=== PATIENT | female | born 1980 | race Caucasian/White ===

== ENCOUNTER → 2024-11-23 | Outpatient (CLI) | payer MEDICAID, SELFPAY ==
--- NOTE | 2024-11-23 11:00 | XR_ITS ---
Examination: CT abdomen and pelvis without contrast. Coronal 3-D reconstructions. Sagittal 2-D reconstructions. Date and time of exam:November 23, 2024 1207 hours Comparison March 27, 2024 INDICATIONS: Bilateral flank pain beginning one month ago, history large right staghorn calculus right ureteral stent on CT stone study March 27, 2024, bilateral flank pain beginning one month ago CTDI: vol (mGy): 16.4 DLP: (mGycm): 967 Technique: Axial images of the abdomen have been obtained, 3 mm slice thickness Intravenous contrast material has not been administered. Low dose protocols were performed. One or more of the following dose reduction techniques were used; automated exposure control, adjustment of the mA and/or KV according to patient size, use of iterative reconstruction technique. Findings: Liver is mildly irregular in contour No gallstones Spleen not enlarged No pancreatic mass Extensive staghorn right renal calculi, the largest in the lower pole 16 mm Mild right hydronephrosis Right ureteral stent satisfactory position Small left parapelvic cysts 6 mm medial left renal calculus Aorta normal size No CT findings of appendicitis or bowel obstruction Atrophic uterus Urinary bladder wall thickening up to 6 mm, tiny calculi in the dependent portion of the bladder image 213 Moderate osteopenia IMPRESSION: Primary hepatocellular disease Extensive staghorn right renal calculi Right ureteral stent satisfactory position, mild right hydronephrosis Tiny bladder calculi Cystitis pattern
== END | disposition home or self-care (01) ==
PROVIDERS: PCP Nurse Practitioner Family
DX: N20.0 Calculus of kidney (principal); K76.9 Liver disease, unspecified; N13.30 Unspecified hydronephrosis; N21.0 Calculus in bladder
CPT/HCPCS: 74176

== ENCOUNTER 2025-06-27 09:50 | Emergency (ER) | payer MEDICAID, SELFPAY ==
[2025-06-27 10:06] VITALS: BP 144/93; PULSE 91; RESP 18; TEMP 37.2; O2SAT 96
--- NOTE | 2025-06-27 10:15 | EDRME_ITS ---
Rapid Medical Screening Exam [facility] Arrival date/time: 06/27/25 09:50 45-year-old female with a history of cerebral palsy presents to the emergency room with a chief complaint of a dislodged G-tube yesterday. Patient's caregiver states that she tried to replace it but was unable to. She then started a Soto catheter and does not know if it is in her stomach. Patient's caregiver states that the patient has been having lower abdominal pain. I have greeted and performed a focused initial assessment of this patient. A comprehensive ED assessment and evaluation of the patient, analysis of all test results, and completion of the medical decision making process will be conducted by additional ED providers. Chief Complaint: General Adult/Misc Complain Time Seen by Provider: 06/27/25 09:59 Vital signs: Vital Signs Temperature 98.9 F 06/27/25 10:06 Pulse Rate 91 06/27/25 10:06 Respiratory Rate 18 06/27/25 10:06 Blood Pressure 144/93 H 06/27/25 10:06 Pulse Oximetry (%) 96 06/27/25 10:06 Oxygen Delivery Method Room Air 06/27/25 10:06 Vital signs reviewed by provider: Yes
[2025-06-27 10:53] LABS: Basophils # (Auto) 0.0 Thou/mm3 (0.0-0.2); Basophils % (Auto) 0 % (0-2.5); Eosinophils # (Auto) 0.1 Thou/mm3 (0.0-0.5); Eosinophils % (Auto) 1 % (0-10); Hematocrit 44.1 % (36.0-46.0); Hemoglobin 14.2 g/dL (12.0-16.0); Immature Granulocytes Auto 0.03 Thou/mm3 (0.00-0.00); Lymphocytes # (Auto) 1.8 Thou/mm3 (1.0-4.8); Lymphocytes % (Auto) 19 % (10-50); Mean Corpuscular HGB Conc 32.2 g/dl (31.0-37.0); Mean Corpuscular Hemoglobin 26.2 pg (25.0-35.0); Mean Corpuscular Volume 81 fL (80-100); Monocytes # (Auto) 0.4 Thou/mm3 (0.0-0.8); Monocytes % (Auto) 4 % (0-12); Neutrophils # (Auto) 7.2 Thou/mm3 (1.8-7.7); Neutrophils % (Auto) 75 % (37-80); Nucleated Red Blood Cell # 0.00 Thou/mm3 (0.00-0.00); Nucleated Red Blood Cell % 0 /100 WBC (0); Platelet Count 296 Thou/mm3 (140-440); RDW Standard Deviation 46.3 fL (36.4-46.3); Red Blood Count 5.42 Miln/mm3 (4.00-5.20); White Blood Count 9.6 Thou/mm3 (3.6-11.0)
[2025-06-27 11:13] LABS: Alanine Aminotransferase 36 U/L (10-49); Albumin, Serum 4.9 gm/dL (3.5-5.0); Albumin/Globulin Ratio 1.5 (1.2-2.2); Alkaline Phosphatase 156 U/L (46-116); Amylase 71 U/L (30-118); Anion Gap 12 (7-16); Aspartate Amino Transferase 20 U/L (0-34); BUN/Creatinine Ratio 15 Ratio (12-20); Bilirubin,Total 0.8 mg/dL (0.3-1.2); Blood Urea Nitrogen 9 mg/dL (9-23); Calcium 9.6 mg/dL (8.3-10.6); Calcium (Corrected) 9.6 mg/dL (8.5-10.1); Carbon Dioxide 24.7 mMol/L (20.0-31.0); Chloride 106 mMol/L (98-107); Creatinine (Component) 0.6 mg/dL (0.6-1.3); Globulin 3.2 gm/dL (2.3-3.5); Glucose 114 mg/dL (74-106); Osmolality,Calculated 284 (275-295); Potassium 4.3 mMol/L (3.4-5.1); Sodium 143 mMol/L (136-145); Total Protein 8.1 gm/dL (5.7-8.2); eGFR > 60 See Note
--- NOTE | 2025-06-27 11:57 | XR_ITS ---
Examination: Abdomen AP single view Technique: AP portable supine abdomen, single view Exam date and time: #16 2024 1244 hours INDICATIONS: Known unknown position gastrostomy tube FINDINGS: Contrast opacified gastrostomy tube stomach and duodenum IMPRESSION: Gastrostomy tube in the stomach satisfactory position
--- NOTE | 2025-06-27 11:57 | EDNOTE_ITS ---
<Statement entered by Rach York MD - 06/27/25 15:08> As co-signing physician, I was present and available for consult prn. I concur with the plan and care as documented by the midlevel provider. ED General RME/HPI General Chief complaint: General Adult/Misc Complain Stated complaint: Feeding tube came out last night Time Seen by Provider: 06/27/25 09:59 Arrival date/time: 06/27/25 09:50 CC: Dislodged G-tube, urinary tract infection HPI this patient is nonverbal nonambulatory well cared for by her mother who comes in stating that she is complaining of dysuria, and is fairly sure that she has a urinary tract infection in addition patient mother has been manipulating an old catheter through the G-tube stoma which is now no longer functional and requires a new G- tube placement. Mother reports a fever at home. Patient is awake and responding to most questions with nods RME / HPI RME / HPI narrative: 06/27/25 09:50 45-year-old female with a history of cerebral palsy presents to the emergency ro om with a chief complaint of a dislodged G-tube yesterday. Patient's caregiver states that she tried to replace it but was unable to. She then started a Soto catheter and does not know if it is in her stomach. Patient's caregiver states that the patient has been having lower abdominal pain. I have greeted and performed a focused initial assessment of this patient. A comprehensive ED assessment and evaluation of the patient, analysis of all test results, and completion of the medical decision making process will be conducted by additional ED providers. Related Data Home Medications ?Medication ?Instructions ?Recorded ?Confirmed lactulose 20 gram/30 mL oral 30 ml G-tube HS #0 grams 01/14/17 05/01/24 solution montelukast 10 mg tablet 10 mg feeding tube HS #0 tab s 01/14/17 05/01/24 (Singulair) tizanidine 4 mg tablet (Zanaflex) 4 mg feeding tube HS #0 tabs 01/14/17 05/01/24 sertraline 50 mg tablet (Zoloft) 50 mg feeding tube QD AY Depression 08/04/18 05/01/24 estradiol 0.5 mg tablet 0.5 mg feeding tube QDAY 07/3105/01/24 acetaminophen 300 mg-codeine 30 mg 1 tab feeding tube BID PRN Pain 07/19/20 05/01/24 tablet omeprazole 20 mg tablet,delayed 20 mg PO QDAY 08/14/20 05/01/24 release amlodipine 5 mg tablet 5 mg feeding tube QDAY 10/3105/01/24 atorvastatin 40 mg tablet 40 mg feeding tube QDAY 02/1005/01/24 tamsulosin 0.4 mg capsule 0.4 mg PO QDAY 03/05/2104/12 metoprolol succinate 25 mg 25 mg PO QDAY 05/17/2104/12 tablet,extended release 24 hr albuterol 90 mcg-budesonide 80 See Rx Instructions .Ro danita .COMPLEX 05/01/24 05/01/24 mcg/actuation HFA aerosol inhaler (Airsupra) Previous Rx's ?Medication ?Instructions ?Recorded prednisone 10 mg tablet See Taper PO QDAY #45 tabs 0 05/03/24 cefpodoxime 200 mg tablet 200 mg PO BID #14 tabs 06/21 sulfamethoxazole 800 1 tab PO BID 7 days #14 tabs 06/27/25 mg-trimethoprim 160 mg tablet (Bactrim DS) Allergies Allergy/AdvReac Type Severity Reaction Status Date / Time linezolid Allergy Severe Vomiting Verified 06/27/25 09:54 morphine Allergy Severe HIVES Verified 06/27/25 09:54 nitrofurantoin Allergy Severe RASH,TONGUE Verified 06/27/25 09:54 SWELLS,VOMITS tramadol Allergy Severe HIVES Verified 06/27/25 09:54 Review of Systems Review of Systems ROS Unobtainable: unobtainable due to mental status Past Medical History Past Medical History NEUROLOGIC: Positive Neurological Disorders and Cerebral Palsy; Negative Dementia, Seizures, Epilepsy, Guillain-[place] Syndrome or Traumatic Brain Injury CARDIAC: Positive Cardiac Disorders, Hypercholesterolemia and Hypertension; Negative Congestive Heart Failure, Edema or Cellulitis RESPIRATORY: Positive Asthma and Pneumonia; Negative Chronic Obstructive Pulmonary Disease (COPD), Tuberculosis or Sleep Apnea GASTROINTESTINAL: Positive Gastrointestinal Disorders, Gastroesophageal Reflux Disease and Obesity; Negative Hepatitis GENITOURINARY: Positive Genitourinary Disorders, Renal Disease and Kidney Stones REPRODUCTIVE: Positive Endometriosis; Negative Breast Cancer or Previous Pregnancies MUSCULOSKELETAL: Positive Musculoskeletal Disorders, Arthritis and Scoliosis; Negative Muscular Dystrophy ENT: Negative Glaucoma ENDOCRINE: Positive Endocrine Disorders and Parathyroid Disease; Negative Diabetes Mellitus Type 1, Diabetes Mellitus Type 2 or Hypothyroidism HEMATOLOGIC: Negative Blood Disorders, Anemia, Sickle Cell Disease or Clotting Problems PSYCHO/SOCIAL: Positive Depression and Anxiety OTHER HISTORY: Positive Hospitalization, Anesthesia Reactions and Chicken Pox; Negative Autoimmune Disease, Down Syndrome, Developmental Delay, Shingles, Falls, Blood Transfusions, Blood Transfusion Reaction, Chemotherapy, Radiation Therapy, MRSA, VRSA, Measles, Mumps, Clostridium Difficile, Cancer or Breast Cancer Family History FAMILY HISTORY: Positive Family Respiratory Disorders, Family Cardiac Disorders and Family Surgery; Negative Family Psychiatric Problems, Family Gastrointestinal Problems, Family Cancer or Family Anesthesia Reaction Surgical History SURGICAL: Positive Abdominal Surgery and Hysterectomy; Negative Cardiac Surgery, Pacemaker, Endocrine Surgery, Ear Surgery, Gastrostomy, Joint Replacement or Neurologic Surgery Social History SMOKING STATUS: Never smoker SECOND HAND EXPOSURE: No SUBSTANCE USE: does not use ED Exam Narrative Physical exam: [General: Appears not in any acute distress acute distress note: Patient is nonverbal Head normocephalic HEENT: Eyes pupils are PERRLA EOMs are intact mouth tooth loose, pink moist membranes uvula is midline swallow symmetrical within acceptable limits Neck is supple nontender no JVD Chest equal chest rise nontender to palpation Respiratory: Clear to auscultation no wheezes crackles or rubs CV: Rate rhythm is regular no murmurs rubs or clicks Abdomen is distended secondary to body habitus soft nontender no masses positive bowel sounds all 4 quadrants. A single stoma center abdomen surrounding area is nonerythematous nonedematous no exudate or bleeding. Back: No CVA tenderness no spinous process tenderness from cervical spine thoracic and lumbar spine Skin: Intact no petechiae rash induration ulceration or crepitus Extremities: Contractures and deconditioning of all 4 extremities cap refills less than 2 seconds. Neuro: Awake alert (baseline) Course Quality Measures none Orders Category Date Time Status In and Out Catheter X1 Care 06/27/25 11:42 Completed XR abdomen 1V Stat Exams 06/27/25 11:57 Completed Amylase Stat Lab 06/27/25 10:48 Completed CBC Stat Lab 06/27/25 10:48 Completed CMP [Comprehensive Metabolic Panel] Stat Lab 06/27/25 10:48 Completed HCG Qualitative,Urine Stat Lab 06/27/25 12:20 Completed UA [Urinalysis] Stat Lab 06/27/25 12:20 Completed Urine Culture Stat Lab 06/27/25 12:20 Received Ketorolac Inj [Toradol Inj] Med 06/27/25 12:11 Discontinued 30 mg IM X1 ONE cefTRIAXone [Rocephin] 1,000 mg Med 06/27/25 13:51 Ordered Lidocaine 1% 20 ml [Xylocaine 1% 20 ML] 2.1 ml IM X1 Vital Signs Vital signs: Vital Signs Temperature 98.9 F 06/27/25 10:06 Pulse Rate 91 06/27/25 10:06 Respiratory Rate 18 06/27/25 10:06 Blood Pressure 144/93 H 06/27/25 10:06 Pulse Oximetry (%) 96 06/27/25 10:06 Oxygen Delivery Method Room Air 06/27/25 10:06 PROCEDURES: Procedure Comment Old feeding tube, which turns out to be a straight cath catheter with no b alloon, was removed without complication. 14 Urdu Soto catheter was advanced without complication balloon was inflated, gastric count contents was noted in the tube itself. Patient tolerated the procedure well dressing was applied. Discharge Plan Plan Patient Disposition: HOME (Self Care) Patient condition on transfer: Stable Prescriptions/Referrals Prescriptions/Med Rec: New sulfamethoxazole-trimethoprim [Bactrim DS] 800-160 mg tablet 1 tab PO BID 7 Days Qty: 14 0RF No Action montelukast [Singulair] 10 MG tablet 10 mg feeding tube HS Qty: 0 lactulose 20 GM/30 ML syrup 30 ml GT HS Qty: 0 tizanidine [Zanaflex] 4 MG tablet 4 mg feeding tube HS Qty: 0 acetaminophen-codeine 300-30 mg tablet 1 tab feeding tube BID PRN (Reason: Pain) Patient Comments: TAKE 1 TABLET BY MOUTH TWICE A DAY omeprazole 20 mg tablet,delayed release (DR/EC) 20 mg PO QDAY sertraline [Zoloft] 50 mg Tablet 50 mg feeding tube QDAY estradiol 0.5 mg tablet 0.5 mg feeding tube QDAY Patient Comments: TAKE 1 TABLET BY MOUTH EVERY DAY amlodipine 5 mg Tablet 5 mg feeding tube QDAY atorvastatin 40 mg Tablet 40 mg feeding tube QDAY tamsulosin 0.4 mg Capsule 0.4 mg PO QDAY metoprolol succinate 25 mg tablet extended release 24 hr 25 mg PO QDAY Patient Comments: TAKE 1 TABLET BY MOUTH EVERY DAY Airsupra 90-80 mcg/actuation HFA aerosol inhaler See Rx Instructions .ROUTE .COMPLEX Rx Instructions: 2 PUFF TID PRN prednisone 10 mg tablet See Taper PO QDAY Qty: 45 0RF Taper: Prednisone Taper 60 mg DAILY for 5 Days and 0 Hour 50 mg DAILY for 1 Day and 0 Hour 40 mg DAILY for 1 Day and 0 Hour 30 mg DAILY for 1 Day 20 mg DAILY for 1 Day 10 mg DAILY for 1 Day Rx Instructions: TAPER: 60 mg daily for 5 Days; 50 mg daily for 1 Day; 40 mg daily for 1 Day; 30 mg daily for 1 Day; 20 mg daily for 1 Day; 10 mg daily for 1 Day cefpodoxime 200 mg tablet 200 mg PO BID Qty: 14 0RF Rx Instructions: must administer with a meal/food Referrals: No Primary/Family,Physician [Primary Care Provider] - In 1 week Problem List Clinical Impression: UTI (urinary tract infection), Gastrostomy tube dysfunction Patient/Caregiver Discharge Instructions Education Materials: ED CYSTITIS Female Adult Additional Instructions: Take the medication as prescribed if there is worsening of symptoms return the emergency room for reevaluation. Print Language: Romanian Stand Alone Forms: [employer] Info., Work/School Release, Patient Portal Info Letter PA/ISABEL Supervising Physician PA/ISABEL Supervising Physician: Marck Dee ENP [facility] Clinical Information Provided by patient and parent Medical Records Reviewed [facility] Meds/Rx Considered, not Ordered None Labs/Rad/Tests considered, not Ordered None Chronic Illness/Social Conditions Add or document further as needed: Cerebral palsy nonverbal nonambulatory EKG EKG not done Lab Interpretation Labs: interpreted by me Lab(s) interpretation(s): CBC shows no leukocytosis anemia thrombocytopenia CMP shows no significant electrolyte imbalances renal impairment transaminitis or T. bili elevation Urine is positive for leukocyte esterase 23 WBCs 3+ bacteria. Imaging Imaging interpretation: interpreted by me Provider imaging interpretation(s): X-ray with Gastrografin as interpreted by me shows that the G-tube is in s atisfactory position. Medication Administration(s) Medication Administration History Ceftriaxone Sodium 1,000 mg/ (Lidocaine HCl 2.1 ml) 0 mg IM X1 ONE Stop: 06/27/25 13:52 Discontinued Medications Ketorolac Tromethamine (Ketorolac Inj 60 Mg/2 Ml Vial) 30 mg IM X1 ONE Stop: 06/27/25 12:12 Last Admin: 06/27/25 12:31 Dose: 30 mg Documented By: KELLI Diagnosis Differential diagnosis: UTI pyelonephritis Dispositon Disposition: Discharge Home
[2025-06-27] MEDS: KETOROLAC INJ 60 MG/2 ML VIAL 30 MG IM (12:31)
[2025-06-27 12:38] VITALS: BMI 29.7
[2025-06-27 12:50] LABS: Collection Type, Urine Clean Catch
[2025-06-27 13:00] VITALS: TEMP 37.6
[2025-06-27 13:04] LABS: Bacteria,Urine 3+; Bilirubin,Urine Negative (Negative); Blood,Urine Negative (Negative); Clarity,Urine Clear (Clear/Hazy); Color,Urine Lt-Yellow (Lt Yel-Yel); Glucose, Urine Negative (Negative); Ketones,Urine Negative (Negative); Leukocyte Esterase,Urine Positive (Negative); Nitrite,Urine Positive (Negative); PH,Urine 6.5 (5.0-7.0); Protein,Urine Trace (Neg - Trace); RBC,Urine 4 /hpf (0-3); Specific Gravity,Urine 1.012 (1.001-1.035); Squamous Epithelial Cell,Urine < 1 /hpf (0-5); Urobilinogen,Urine Negative mg/dL (0.0-1.0); WBC,Urine 23 /hpf (0-5)
[2025-06-27 13:09] VITALS: PULSE 69; RESP 17; O2SAT 95
[2025-06-27 13:14] LABS: HCG Qualitative,Urine Negative
[2025-06-27] MEDS: cefTRIAXone 1,000 MG, LIDOCAINE 1% 20 ML 2.1 ML IM (14:35)
[2025-06-27 14:44] VITALS: BP 149/107; PULSE 92; RESP 16; O2SAT 98
== END 2025-06-27 14:58 | disposition home or self-care (01) ==
PROVIDERS: Nurse Practitioner Family; Emergency Provider Emergency Medicine
DX: N39.0 Urinary tract infection, site not specified (principal); K94.23 Gastrostomy malfunction
CPT/HCPCS: 51701; 36415; 74018; 80053; 81001; 81025; 82150; 85025; 87077; 87086; 87186; 96372; 99284; J0696; J1885; J3490

== ENCOUNTER 2025-07-12 15:10 | Emergency (ER) | payer MEDICAID, SELFPAY ==
[2025-07-12 15:48] VITALS: BP 136/88; PULSE 79; RESP 20; TEMP 37.1; O2SAT 95; BMI 29.7
--- NOTE | 2025-07-12 16:12 | XR_ITS ---
Examination: Abdomen AP single view Technique: AP portable supine abdomen, single view Exam date and time: July 12, 2025, 1640 hrs. Indications: Unknown position gastrostomy tube Findings: Gastrostomy tube satisfactory position in the stomach, with opacification of the stomach duodenal bulb and small bowel without abnormal extravasation Impression: Gastrostomy tube satisfactory position
--- NOTE | 2025-07-12 16:13 | EDNOTE_ITS ---
ED General RME/HPI General Chief complaint: General Adult/Misc Complain Stated complaint: FEEDING TUBE CAME OUT Time Seen by Provider: 07/12/25 15:57 Arrival date/time: 07/12/25 15:10 RME / HPI RME / HPI narrative: 45-year-old female patient with significant history of chronic debility, nonverbal, came in for evaluation regarding gastric tube came out. Patient has been having gastric tube for the last 30 years, and earlier today patient gastric tube came out out of nowhere. Family tried to put temporary tubing using friends 14 catheter. No bleeding noted no vomiting noted no other complaints noted. Related Data Home Medications ?Medication ?Instructions ?Recorded ?Confirmed lactulose 20 gram/30 mL oral 30 ml G-tube HS #0 grams 01/14/17 05/01/24 solution montelukast 10 mg tablet 10 mg feeding tube HS #0 tab s 01/14/17 05/01/24 (Singulair) tizanidine 4 mg tablet (Zanaflex) 4 mg feeding tube HS #0 tabs 01/14/17 05/01/24 sertraline 50 mg tablet (Zoloft) 50 mg feeding tube QD AY Depression 08/04/18 05/01/24 estradiol 0.5 mg tablet 0.5 mg feeding tube QDAY 07/3105/01/24 acetaminophen 300 mg-codeine 30 mg 1 tab feeding tube BID PRN Pain 07/19/20 05/01/24 tablet omeprazole 20 mg tablet,delayed 20 mg PO QDAY 08/14/20 05/01/24 release amlodipine 5 mg tablet 5 mg feeding tube QDAY 10/3105/01/24 atorvastatin 40 mg tablet 40 mg feeding tube QDAY 02/1005/01/24 tamsulosin 0.4 mg capsule 0.4 mg PO QDAY 03/05/2104/12 metoprolol succinate 25 mg 25 mg PO QDAY 05/17/2104/12 tablet,extended release 24 hr albuterol 90 mcg-budesonide 80 See Rx Instructions .Ro danita .COMPLEX 05/01/24 05/01/24 mcg/actuation HFA aerosol inhaler (Airsupra) Previous Rx's ?Medication ?Instructions ?Recorded prednisone 10 mg tablet See Taper PO QDAY #45 tabs 0 05/03/24 cefpodoxime 200 mg tablet 200 mg PO BID #14 tabs 06/21 Allergies Allergy/AdvReac Type Severity Reaction Status Date / Time linezolid Allergy Severe Vomiting Verified 06/27/25 09:54 morphine Allergy Severe HIVES Verified 06/27/25 09:54 tramadol Allergy Severe HIVES Verified 06/27/25 09:54 Review of Systems Review of Systems Narrative Review of Systems: Review of system reviewed and within normal limits except mentioned in HPI ED Exam Narrative Physical exam: VITAL SIGNS: Reviewed. GENERAL APPEARANCE: Alert and good eye contact does not follows commands, no acute distress, HEAD AND FACE: Non-traumatic. ENT: PERRL, pink conjunctivitis, eyelid no trauma, Mucous membrane moist. NECK: Supple, nontender, no nuchal rigidity. CHEST: No tenderness, no crepitus, no paradoxical movement, no retractions. LUNGS: Clear, well ventilated, symmetric, no rales, no wheezing, no ronchi, no stridor, good breath sounds bilaterally. HEART: Regular rate, regular rhythm, no murmur, no gallops. ABDOMEN: Soft, positive bowel sounds, nondistended, no guarding, nontender, no rebound, no masses, G-tube site intact no bleeding RECTAL: Deferred. GENITAL: Deferred. NEUROLOGICAL: Gross motor function intact sensory function intact, Appropriate for age. MUSCULOSKELETAL: low back nontender, full range of motion. EXTREMITIES: Nontender, full range of motion. SKIN: Color pink, dry, no rash, no lacerations, no abrasions, no contusions. LYMPHATICS: Deferred. Course Quality Measures none Orders Category Date Time Status XR abdomen 1V Stat Exams 07/12/25 16:12 Taken Vital Signs Vital signs: Vital Signs Temperature 98.7 F 07/12/25 15:48 Pulse Rate 79 07/12/25 15:48 Respiratory Rate 20 07/12/25 15:48 Blood Pressure 136/88 H 07/12/25 15:48 Pulse Oximetry (%) 95 07/12/25 15:48 Oxygen Delivery Method Room Air 07/12/25 15:48 Discharge Plan Plan Patient Disposition: HOME (Self Care) Discharge Disposition comment: Stable Prescriptions/Referrals Prescriptions/Med Rec: No Action montelukast [Singulair] 10 MG tablet 10 mg feeding tube HS Qty: 0 lactulose 20 GM/30 ML syrup 30 ml GT HS Qty: 0 tizanidine [Zanaflex] 4 MG tablet 4 mg feeding tube HS Qty: 0 acetaminophen-codeine 300-30 mg tablet 1 tab feeding tube BID PRN (Reason: Pain) Patient Comments: TAKE 1 TABLET BY MOUTH TWICE A DAY omeprazole 20 mg tablet,delayed release (DR/EC) 20 mg PO QDAY sertraline [Zoloft] 50 mg Tablet 50 mg feeding tube QDAY estradiol 0.5 mg tablet 0.5 mg feeding tube QDAY Patient Comments: TAKE 1 TABLET BY MOUTH EVERY DAY amlodipine 5 mg Tablet 5 mg feeding tube QDAY atorvastatin 40 mg Tablet 40 mg feeding tube QDAY tamsulosin 0.4 mg Capsule 0.4 mg PO QDAY metoprolol succinate 25 mg tablet extended release 24 hr 25 mg PO QDAY Patient Comments: TAKE 1 TABLET BY MOUTH EVERY DAY Airsupra 90-80 mcg/actuation HFA aerosol inhaler See Rx Instructions .ROUTE .COMPLEX Rx Instructions: 2 PUFF TID PRN prednisone 10 mg tablet See Taper PO QDAY Qty: 45 0RF Taper: Prednisone Taper 60 mg DAILY for 5 Days and 0 Hour 50 mg DAILY for 1 Day and 0 Hour 40 mg DAILY for 1 Day and 0 Hour 30 mg DAILY for 1 Day 20 mg DAILY for 1 Day 10 mg DAILY for 1 Day Rx Instructions: TAPER: 60 mg daily for 5 Days; 50 mg daily for 1 Day; 40 mg daily for 1 Day; 30 mg daily for 1 Day; 20 mg daily for 1 Day; 10 mg daily for 1 Day cefpodoxime 200 mg tablet 200 mg PO BID Qty: 14 0RF Rx Instructions: must administer with a meal/food Referrals: No Primary/Family,Physician [Primary Care Provider] - In 1 week Problem List Clinical Impression: Dislodged gastrostomy tube Patient/Caregiver Discharge Instructions Discharge Activity: activity as tolerated Education Materials: Tube Feeding Flush Dc Additional Instructions: Thank you for the opportunity for serving you today. You are stable for discharged . You are advised to: Okay to use the G-tube Print Language: Bengali Stand Alone Forms: [employer] Info., Patient Portal Info Letter PA/ORDER FULFILLMENT SPECIALIST Supervising Physician PA/ORDER FULFILLMENT SPECIALIST Supervising Physician: MD Jeremiah MDM Narrative MDM hospital course (for use when minimal MDM required): 45-year-old female patient with significant history of chronic debility, nonverbal, came in for evaluation regarding gastric tube came out. Patient has been having gastric tube for the last 30 years, and earlier today patient gastric tube came out out of nowhere. Family tried to put temporary tubing using [employer] 14 catheter. No bleeding noted no vomiting noted no other complaints noted. Using [employer] 16 Soto catheter was inserted without any difficulty. Inflated with 10 cc of NS X-ray of the abdomen with Gastrografin And showed G-tube in right position okay to use the G-tube Okay to discharge home
[2025-07-12 16:45] VITALS: BP 129/82; PULSE 78; RESP 21; TEMP 36.9; O2SAT 95
== END 2025-07-12 17:47 | disposition home or self-care (01) ==
PROVIDERS: Emergency Provider Family Medicine
DX: Z43.1 Encounter for attention to gastrostomy (principal)
CPT/HCPCS: 74018; 99283